=== PATIENT | female | born 1985 | race Caucasian/White ===

== ENCOUNTER 2017-03-21 09:53 | Emergency (ER) | payer SELFPAY ==
[~2017-03-21] VITALS: Ht 157.5 cm; Wt 56.5 kg
[~2017-03-21 09:53] MED LIST: ZOFR4TAB3 SL
[2017-03-21 09:59] VITALS: BP 113/71; PULSE 89; RESP 16; TEMP 98.1; O2SAT 100
--- NOTE | 2017-03-21 10:08 | PD ---
HPI Chief Complaint: Headache Time Seen by Provider: 10:08 Travel History International Travel<30 days: No Contact w/Intl Traveler<30days: No Traveled to known affect area: No History of Present Illness HPI ONSET WAS ABOUT 3 DAYS AGO, STARTED WITH FRONTAL HEAD FULLNESS, HAS H/O SEASONAL ALLERGIES....PT DENIES ANY FEVER. 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 DENIES ANY VAG BLEEDING, HTN, N/V AT THIS TIME PFSH Past Medical History ?: LMP: 3-15-17 Past Surgical History Section: Yes Social History Alcohol Use: No Tobacco Use: No Substance Use: No Allergies-Medications (Allergen,Severity, Reaction): Coded Allergies: Morphine (Verified Allergy, Severe, PASSES OUT, VOMITING, 03/21/17) Macrobid (Verified Allergy, Unknown, Swelling, 03/21/17) Reported Meds & Prescriptions Reported Meds & Active Scripts Active No Active Prescriptions or Reported Medications Review of Systems Except as stated in HPI: all other systems reviewed are Neg Genitourinary: Positive: Urgency, Frequency, Hesitancy Physical Exam Narrative GENERAL: SKIN: Warm and dry. HEAD: Atraumatic. Normocephalic. TTP ALONG FRONTAL SINUS REGION EYES: Pupils equal and round. No scleral icterus. No injection or drainage. NO PHOTOPHOBIA ENT: No nasal bleeding or discharge. Mucous membranes pink and moist...BILATERAL TM SHOW FLUID LEVELS WITHOUT ERYTHEMA OR BULGING NECK: Trachea midline. No JVD. CARDIOVASCULAR: Regular rate and rhythm. RESPIRATORY: No accessory muscle use. Clear to auscultation. Breath sounds equal bilaterally. GASTROINTESTINAL: Abdomen soft, non-tender, nondistended. Hepatic and splenic margins not palpable. MUSCULOSKELETAL: Extremities without clubbing, cyanosis, or edema. No obvious deformities. NEUROLOGICAL: Awake and alert. No obvious cranial nerve deficits. Motor grossly within normal limits. Five out of 5 muscle strength in the arms and legs. Normal speech. PSYCHIATRIC: Appropriate mood and affect; insight and judgment normal. Data Data Last Documented VS Vital Signs Date Time Temp Pulse Resp B/P Pulse Ox O2 Delivery O2 Flow Rate FiO2 03/21/17 09:59 98.1 89 16 113/71 100 Orders Urinalysis - C+S If Indicated (03/21/17 10:03) Urine Culture (03/21/17 10:03) Comprehensive Metabolic Panel (03/21/17 10:24) Labs Laboratory Tests Test 03/21/17 03/21/17 10:03 10:32 Urine Collection Type CLEAN CATCH Urine Color YELLOW Urine Turbidity CLOUDY Urine pH 7.5 Urine Specific [place] 1.021 Urine Protein TRACE mg/dL Urine Glucose (UA) NEG mg/dL Urine Ketones 15 mg/dL Urine Occult Blood NEG Urine Nitrite NEG Urine Bilirubin NEG Urine Leukocyte Esterase MOD Urine WBC 3-5 /hpf Urine Squamous Epithelial > 8 /hpf Cells Urine Amorphous Sediment FEW Urine Bacteria MOD /hpf Microscopic Urinalysis Comment CULTURE INDICATED Sodium Level 139 MEQ/L Potassium Level 3.7 MEQ/L Chloride Level 106 MEQ/L Carbon Dioxide Level 24.2 MEQ/L Anion Gap 9 MEQ/L Blood Urea Nitrogen 7 MG/DL Creatinine 0.52 MG/DL Estimat Glomerular Filtration 139 ML/MIN Rate Random Glucose 86 MG/DL Calcium Level 8.3 MG/DL Total Bilirubin 1.1 MG/DL Aspartate Amino Transf 8 U/L (AST/SGOT) Alanine Aminotransferase 13 U/L (ALT/SGPT) Alkaline Phosphatase 37 U/L Total Protein 6.4 GM/DL Albumin 3.2 GM/DL MDM Medical Decision Making Medical Screen Exam Complete: Yes Emergency Medical Condition: Yes Medical Record Reviewed: Yes Differential Diagnosis ECLAMPSIA/PREECLAMPSIA (NO HTN, WILL ADD CMP TO FURTHER EVAL), UTI, SINUSITIS, Narrative Course PLEASE SEE ABOVE Diagnosis Primary Impression: UTI (urinary tract infection) Qualified Code: N30.00 - Acute cystitis without hematuria Additional Impression: Sinusitis Qualified Code: J01.10 - Acute non-recurrent frontal sinusitis Patient Instructions: General Instructions Scripts Amoxicillin-Clavulanate (Augmentin)875-125 Mg Tab1 Tab PO BID #20 TAB Ref 0 Prov:Yfn Varela MD 03/21/17 Disposition: 01 DISCHARGE HOME Condition: Stable Yfn Varela MD Mar 21, 2017 10:08
[2017-03-21 10:16] LABS: BLOOD, URINE NEG (NEG); GLUCOSE,URINE NEG (NEG); KETONE, URINE 15 mg/dL (NEG); NITRITE,URINE NEG (NEG); PH, URINE 7.5 (5.0-8.5)
[2017-03-21 10:17] LABS: METHOD OF COLLECTION CLEAN CATCH; URINE COLOR YELLOW (YELLW/STRAW)
[2017-03-21 10:20] LABS: BACTERIA, URINE MOD /hpf; COMMENT (UR) CULTURE INDICATED; CULTURE IF INDICATED CULTURE INDICATED; SQUAMOUS EPITHELIAL CELL URINE > 8 /hpf (0-5)
[2017-03-21 10:46] LABS: CHLORIDE 106 MEQ/L (98-107); POTASSIUM 3.7 MEQ/L (3.5-5.1); SODIUM (NA) 139 MEQ/L (136-145)
[2017-03-21 10:49] LABS: ANION GAP 9 MEQ/L (5-15); BICARBONATE 24.2 MEQ/L (21.0-32.0)
[2017-03-21 10:50] LABS: BLOOD UREA NITROGEN 7 MG/DL (7-18)
[2017-03-21 10:52] LABS: ALT (GPT) 13 U/L (10-53)
[2017-03-21 10:53] LABS: AST (GOT) 8 U/L (15-37); GLOMERULAR FILTRATION RATE 139 ML/MIN (>89)
[2017-03-21 10:54] LABS: TOTAL BILIRUBIN ADULT 1.1 MG/DL (0.2-1.0)
[2017-03-21 10:56] LABS: ALKALINE PHOSPHATASE 37 U/L (45-117)
[2017-03-21] MEDS ORDERED: AUGM875T3 PO (11:01)
[2017-03-21 11:13] VITALS: BP 101/61
== END 2017-03-21 11:14 | disposition home or self-care (01) ==
LOC: PHED 09:53
DX: O23.11 Infections of bladder in pregnancy, first trimester (principal); N30.00 Acute cystitis without hematuria; B96.20 Unspecified Escherichia coli [E. coli] as the cause of diseases classified elsewhere; O26.891 Other specified pregnancy related conditions, first trimester; J01.10 Acute frontal sinusitis, unspecified; J30.2 Other seasonal allergic rhinitis; Z3A.11 11 weeks gestation of pregnancy
CPT/HCPCS: 80053; 81001; 87077; 87086; 87186; 99283